=== PATIENT | female | born 1985 | race Asian ===

== ENCOUNTER 2016-10-16 03:19 | Emergency (ER) | payer BC ==
[~2016-10-16] VITALS: Ht 157.5 cm; Wt 72.6 kg
[2016-10-16 03:32] VITALS: BP 139/101; PULSE 91; RESP 16; TEMP 97.8; O2SAT 96
--- NOTE | 2016-10-16 03:32 | NUR ---
Placed in room 8 . 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 To gown for exam. Side rails up.
--- NOTE | 2016-10-16 03:38 | NUR ---
Pt presents to ED with c/o R flank pain radiated to RLQ and suprapubic , 05/30, started an hour ago. pt stated that she was seen at ED and was treated for UTI 1 month ago,then gotten US from PCP revealing kidney stone. Pt stated she did not pass any stone. A&Ox4, denies chestpain or SOB, denies N/V/D. Skin intact, Denies hematuria. will continue to monitor
--- NOTE | 2016-10-16 03:49 | NUR ---
at bedside examining pt
[2016-10-16 03:51] LABS: BILIRUBIN,URINE NEGATIVE (NEGATIVE); BLOOD, URINE 3+ (NEGATIVE); CLARITY/URINE SL CLOUDY (CLEAR); COLOR,URINE YELLOW (YELLOW); GLUCOSE,URINE NEGATIVE (NEGATIVE); KETONES,URINE NEGATIVE (NEGATIVE); LEUKOCYTE ESTERASE ,URINE 2+ (NEGATIVE); NITRITE, URINE NEGATIVE (NEGATIVE); PROTEIN URINE 2+ (NEGATIVE); UROBILINOGEN,URINE 0.2 (0.2-1.0)
[2016-10-16] MEDS ORDERED: NACL 0.9% 1,000 ML IV ONE (03:51)
[2016-10-16] MEDS ORDERED: KETOROLAC TROMETHAMINE 30 MG VIAL IVP ONE ×2 (04:00→05:00)
[2016-10-16] MEDS ORDERED: LORazepam 2 MG/ML VIAL (FOR ER USE) IVP ONE (04:00)
[2016-10-16 04:04] LABS: BACTERIA,URINE MODERATE /HPF (None Seen); RBC,URINE 20-50 /HPF (0-3); WBC,URINE 50-80 /HPF (0-3)
[2016-10-16 04:19] LABS: BASOPHILS % (AUTO) 0.3 % (0.0-2.0); EOSINOPHILS # (AUTO) 0.3 K/uL (0.0-0.4); HEMATOCRIT 39.6 % (36-48); HEMOGLOBIN 13.1 g/dL (12.0-16.0); LYMPHOCYTES # (AUTO) 1.6 K/uL (1.0-5.5); LYMPHOCYTES % (AUTO) 20.1 % (20.5-51.5); MEAN CORPUSCULAR HEMOGLOBIN 32 pg (27-31); MEAN CORPUSCULAR HGB CONC 33 % (32-36); MEAN CORPUSCULAR VOLUME 95 fL (79.0-98.0); MONOCYTES # (AUTO) 0.6 K/uL (0.0-1.0); MONOCYTES % (AUTO) 7.9 % (1.7-9.3); NEUTROPHILS # (AUTO) 5.7 K/uL (1.8-7.7); NEUTROPHILS % (AUTO) 67.7 % (40.0-70.0); PLATELET COUNT (AUTO) 259 K/uL (130-430); RED BLOOD CELL COUNT(AUTO) 4.15 MIL/uL (4.2-6.2); RED CELL DISTRIBUTION WIDTH 12.9 % (9.0-15.0); WHITE BLOOD COUNT (AUTO) 8.2 K/uL (4.8-10.8)
[2016-10-16 04:24] LABS: CALCIUM 8.7 mg/dL (8.4-11.0); CREATININE 0.84 mg/dL (0.55-1.30); POTASSIUM 4.1 mmol/L (3.5-5.1)
[2016-10-16 04:29] LABS: ALBUMIN 3.6 g/dL (3.4-4.8); TOTAL BILIRUBIN 0.2 mg/dL (0.0-1.0); TOTAL PROTEIN, SERUM 7.3 g/dL (6.4-8.3)
--- NOTE | 2016-10-16 04:30 | NUR ---
pt stated pain is tolerable, VSS. Will continue to monitor
[2016-10-16] MEDS ORDERED: PHENAZOPYRIDINE HCL 100 MG TABLET PO ONE (05:00)
[2016-10-16] MEDS ORDERED: CIPROFLOXACIN HCL 500 MG TABLET PO ONE (05:00)
--- NOTE | 2016-10-16 05:40 | NUR ---
Patient given written and verbal discharge instructions and verbalizes understanding. ER MD Leon discussed with patient the results and treatment provided. Patient in stable condition. ID arm band removed. IV catheter removed intact and dressing applied, no active bleeding. Rx of cipro, pyridium, andmotrin given. Patient educated on pain management and to follow up with PMD. Pain Scale 0/10 Opportunity for questions provided and answered.
[2016-10-16 05:41] VITALS: BP 120/76; PULSE 84; RESP 16; TEMP 97.8; O2SAT 96
== END 2016-10-16 05:40 | disposition home or self-care (01) ==
LOC: SED 03:19
DX: N20.0 Calculus of kidney (principal)
CPT/HCPCS: 36415; 74176; 80053; 81000; 81025; 85025; 87086; 87186; 96361; 96374; 96375; 96376; 99285; J1885; J2060; J7030

== ENCOUNTER 2017-04-30 19:10 | Emergency (ER) | payer BC ==
--- NOTE | 2017-04-30 20:47 | NUR ---
Patient left without being seen/triaged. No further treatment provided for the pt. ER MD made aware
--- NOTE | 2017-04-30 20:47 | NUR ---
CALLED TO TRIAGE, NO ANSWER
== END 2017-04-30 20:47 | disposition left against medical advice (07) ==
LOC: SED 19:10
DX: R39.89 Other symptoms and signs involving the genitourinary system (principal)

== ENCOUNTER 2017-07-13 02:34 | Inpatient (IN) | payer BC ==
[~2017-07-13] VITALS: Ht 152.4 cm; Wt 76.3 kg
[2017-07-13] VITALS (15 sets, daily range): BP systolic 50–138
[2017-07-13] MEDS ORDERED: NACL 0.9% 1,000 ML IV ONE ×2 (03:05→20:30)
[2017-07-13] MEDS ORDERED: cefTRIAXone 500 MG in D5W 50 ML IV ONE (03:15)
[2017-07-13] MEDS ORDERED: HYDROmorphone 1 MG INJ. 1 MG/ML AMPUL IVP ONE ×2 (03:15→04:45)
[2017-07-13] MEDS ORDERED: DIPHENHYDRAMINE INJ 50 MG/ML VIAL IVP ONE (03:15)
[2017-07-13] MEDS ORDERED: cefTRIAXone 250 MG VIAL ONE (03:18)
[2017-07-13 03:28] LABS: BILIRUBIN,URINE NEGATIVE (NEGATIVE); BLOOD, URINE 2+ (NEGATIVE); CLARITY/URINE CLEAR (CLEAR); COLOR,URINE YELLOW (YELLOW); GLUCOSE,URINE NEGATIVE (NEGATIVE); KETONES,URINE TRACE (NEGATIVE); LEUKOCYTE ESTERASE ,URINE 2+ (NEGATIVE); NITRITE, URINE POSITIVE (NEGATIVE); PROTEIN URINE TRACE (NEGATIVE)
[2017-07-13] MEDS ORDERED: cefTRIAXone 1 GM in D5W 50 ML IV ONE (03:30)
[2017-07-13 03:32] LABS: BACTERIA,URINE MODERATE /HPF (None Seen); MUCUS,URINE 1+ /LPF (None Seen)
[2017-07-13] MEDS ORDERED: cefTRIAXone 1 GM VIAL ONE (03:34)
[2017-07-13 03:39] LABS: BASOPHILS # (AUTO) 0.5 K/uL (0.0-0.2); BASOPHILS % (AUTO) 3.2 % (0.0-2.0); EOSINOPHILS # (AUTO) 0.1 K/uL (0.0-0.4); EOSINOPHILS % (AUTO) 0.7 % (0.0-4.0); HEMATOCRIT 39.6 % (36-48); HEMOGLOBIN 13.3 g/dL (12.0-16.0); LYMPHOCYTES # (AUTO) 1.1 K/uL (1.0-5.5); LYMPHOCYTES % (AUTO) 6.9 % (20.5-51.5); MEAN CORPUSCULAR HEMOGLOBIN 31 pg (27-31); MEAN CORPUSCULAR HGB CONC 34 % (32-36); MEAN CORPUSCULAR VOLUME 92 fL (79.0-98.0); MONOCYTES # (AUTO) 0.5 K/uL (0.0-1.0); MONOCYTES % (AUTO) 3.6 % (1.7-9.3); NEUTROPHILS % (AUTO) 85.6 % (40.0-70.0); PLATELET COUNT (AUTO) 289 K/uL (130-430); RED BLOOD CELL COUNT(AUTO) 4.29 MIL/uL (4.2-6.2); RED CELL DISTRIBUTION WIDTH 12.6 % (9.0-15.0); WHITE BLOOD COUNT (AUTO) 15.2 K/uL (4.8-10.8)
[2017-07-13 03:47] LABS: CALCIUM 8.6 mg/dL (8.4-11.0); CREATININE 1.12 mg/dL (0.55-1.30); POTASSIUM 3.6 mmol/L (3.5-5.1)
[2017-07-13] MEDS ORDERED: ACETAMINOPHEN 325 MG TABLET PO PRN (04:45)
[2017-07-13] MEDS ORDERED: ONDANSETRON HCL 4 MG/2 ML VIAL IVP ONE (04:45)
[2017-07-13] MEDS: HYDROmorphone 1 MG INJ. 1 MG/ML AMPUL IVP PRN ×2 (07:41→11:45)
[2017-07-13] MEDS: D5NS 1,000 ML IV SCH ×2 (07:41→20:26)
[2017-07-13] MEDS ORDERED: HYDROmorphone 1 MG INJ. 1 MG/ML AMPUL IVP PRN (13:15)
[2017-07-13] MEDS ORDERED: LEVOFLOXACIN 500 MG/D5W 100 ML IV ONE (13:15)
[2017-07-13] MEDS ORDERED: NS 500 ML IV ONE (13:15)
[2017-07-13] MEDS: ACETAMINOPHEN 325 MG TABLET PO PRN (13:28)
[2017-07-13] MEDS: HYDROmorphone 2 MG/ML VIAL IVP PRN (13:29)
[2017-07-13] MEDS: IBUPROFEN 600 MG TABLET PO PRN (15:22)
[2017-07-13 23:45] LABS: BASOPHILS # (AUTO) 0.1 K/uL (0.0-0.2); BASOPHILS % (AUTO) 0.5 % (0.0-2.0); HEMATOCRIT 32.4 % (36-48); HEMOGLOBIN 10.9 g/dL (12.0-16.0); LYMPHOCYTES # (AUTO) 1.1 K/uL (1.0-5.5); LYMPHOCYTES % (AUTO) 3.9 % (20.5-51.5); MEAN CORPUSCULAR HEMOGLOBIN 31 pg (27-31); MEAN CORPUSCULAR HGB CONC 34 % (32-36); MEAN CORPUSCULAR VOLUME 93 fL (79.0-98.0); MONOCYTES # (AUTO) 0.8 K/uL (0.0-1.0); MONOCYTES % (AUTO) 2.9 % (1.7-9.3); NEUTROPHILS # (AUTO) 26.2 K/uL (1.8-7.7); NEUTROPHILS % (AUTO) 92.7 % (40.0-70.0); PLATELET COUNT (AUTO) 173 K/uL (130-430); RED CELL DISTRIBUTION WIDTH 12.7 % (9.0-15.0); WHITE BLOOD COUNT (AUTO) 28.2 K/uL (4.8-10.8)
[2017-07-13 23:54] LABS: CALCIUM 7.3 mg/dL (8.4-11.0); CREATININE 2.03 mg/dL (0.55-1.30); POTASSIUM 3.4 mmol/L (3.5-5.1)
[2017-07-13 23:59] LABS: ALBUMIN 2.3 g/dL (3.4-4.8); TOTAL BILIRUBIN 0.4 mg/dL (0.0-1.0)
[2017-07-14] VITALS (26 sets, daily range): BP systolic 83–120
[2017-07-14] MEDS: NOREPINEPHRINE BITARTRATE 4 MG in D5W 246 ML IV PRN ×2 (00:15→11:47)
[2017-07-14] MEDS ORDERED: LEVOFLOXACIN 500 MG/D5W 100 ML IV SCH (01:45)
[2017-07-14] MEDS ORDERED: POTASSIUM CHLORIDE 20 MEQ TAB.PRT.SR PO ONE (01:45)
[2017-07-14] MEDS ORDERED: POTASSIUM CHLORIDE 20 MEQ TAB.PRT.SR ONE (01:52)
[2017-07-14] MEDS: ACETAMINOPHEN 325 MG TABLET PO PRN (01:58)
[2017-07-14] MEDS: LEVOFLOXACIN 500 MG/D5W 100 ML IV ONE ×2 (02:09→02:20)
[2017-07-14] MEDS ORDERED: cefTRIAXone 1 GM in D5W 50 ML IV SCH (09:00)
[2017-07-14] MEDS: D5NS 1,000 ML IV SCH (09:10)
[2017-07-14] MEDS ORDERED: NACL 0.9% 1,000 ML IV ONE (11:00)
[2017-07-14] MEDS ORDERED: PIPERACILLIN/TAZO 4.5GM/DEX-IS 100 ML IV SCH (11:00)
[2017-07-14] MEDS ORDERED: GENTAMICIN 80 mg/100 mL NS 100 ML IV ONE (12:15)
[2017-07-14] MEDS: NACL 0.9% 1,000 ML IV SCH ×2 (12:39→20:08)
[2017-07-14] MEDS: PIPERACILLIN/TAZOBACTAM 4.5 GM/ D5W 100 ML IV SCH ×4 (14:31→21:27)
[2017-07-14] MEDS ORDERED: IBUPROFEN 600 MG TABLET ONE (19:49)
[2017-07-14] MEDS: IBUPROFEN 600 MG TABLET PO PRN (19:53)
[2017-07-14] MEDS: HYDROmorphone 2 MG/ML VIAL IVP PRN (21:11)
[2017-07-15] VITALS (21 sets, daily range): BP systolic 90–124
[2017-07-15] MEDS: NACL 0.9% 1,000 ML IV SCH (03:45)
[2017-07-15] MEDS: PIPERACILLIN/TAZOBACTAM 4.5 GM/ D5W 100 ML IV SCH ×6 (05:25→21:10)
[2017-07-15 06:27] LABS: BASOPHILS # (AUTO) 0.1 K/uL (0.0-0.2); BASOPHILS % (AUTO) 0.2 % (0.0-2.0); EOSINOPHILS # (AUTO) 0.2 K/uL (0.0-0.4); EOSINOPHILS % (AUTO) 0.7 % (0.0-4.0); HEMATOCRIT 29.7 % (36-48); HEMOGLOBIN 9.9 g/dL (12.0-16.0); LYMPHOCYTES # (AUTO) 1.8 K/uL (1.0-5.5); LYMPHOCYTES % (AUTO) 6.4 % (20.5-51.5); MEAN CORPUSCULAR HEMOGLOBIN 31 pg (27-31); MEAN CORPUSCULAR HGB CONC 33 % (32-36); MEAN CORPUSCULAR VOLUME 93 fL (79.0-98.0); MONOCYTES # (AUTO) 1.2 K/uL (0.0-1.0); MONOCYTES % (AUTO) 4.3 % (1.7-9.3); NEUTROPHILS # (AUTO) 25.2 K/uL (1.8-7.7); PLATELET COUNT (AUTO) 157 K/uL (130-430); RED BLOOD CELL COUNT(AUTO) 3.18 MIL/uL (4.2-6.2); RED CELL DISTRIBUTION WIDTH 12.9 % (9.0-15.0); WHITE BLOOD COUNT (AUTO) 28.5 K/uL (4.8-10.8)
[2017-07-15 06:42] LABS: ALBUMIN 2.1 g/dL (3.4-4.8); CALCIUM 7.1 mg/dL (8.4-11.0); CREATININE 0.92 mg/dL (0.55-1.30); POTASSIUM 4.2 mmol/L (3.5-5.1); TOTAL BILIRUBIN 0.2 mg/dL (0.0-1.0)
[2017-07-15] MEDS: HYDROmorphone 2 MG/ML VIAL IVP PRN ×3 (07:42→19:41)
[2017-07-15 07:50] LABS: NEUTROPHILS % (AUTO) 88.4 % (40.0-70.0)
[2017-07-15] MEDS: ONDANSETRON HCL 4 MG/2 ML VIAL IVP PRN ×2 (10:32→19:40)
[2017-07-16] MEDS: HYDROmorphone 2 MG/ML VIAL IVP PRN (00:24)
[2017-07-16 00:38] VITALS: BP_SYST 121
== END 2017-07-16 01:40 | disposition short-term general hospital (02) | DRG 871 ==
LOC: SED 02:34 → SMU 04:40 → SIC 23:39 → SMU 07-15 18:30
PROVIDERS: ADMIT Internal Medicine Hospice and Palliative Medicine; ATTEND Internal Medicine Hospice and Palliative Medicine
DX: A41.9 Sepsis, unspecified organism (principal); R65.21 Severe sepsis with septic shock; N17.0 Acute kidney failure with tubular necrosis; N10 Acute pyelonephritis; I10 Essential (primary) hypertension; N32.3 Diverticulum of bladder; N20.0 Calculus of kidney; N21.0 Calculus in bladder; Z79.899 Other long term (current) drug therapy
CPT/HCPCS: 36415; 36600; 76770; 80048; 80053; 81000-TC; 82803-TC; 82962; 83605; 85025; 87040-TC; 87081; 87086; 87186-TC; 96361; 96365; 96375; 96376; 99285; J0696; J1170; J1200; J1580; J1956; J2405; J2543; J7030; J7040; J7042; J7060

== ENCOUNTER 2024-03-04 20:57 | Emergency (ER) | payer BC, OTHER ==
[~2024-03-04] VITALS: Ht 152.4 cm; Wt 68.0 kg
[2024-03-04 21:39] VITALS: BP_SYST 126; PULSE 75; RESP 17; TEMP 97.5; O2SAT 97
[2024-03-04 21:46] LABS: BASOPHILS # (AUTO) 0.2 K/uL (0.0-0.2); BASOPHILS % (AUTO) 2.1 % (0.0-2.0); EOSINOPHILS # (AUTO) 0.2 K/uL (0.0-0.4); EOSINOPHILS % (AUTO) 1.3 % (0.0-4.0); HEMATOCRIT 41.9 % (36-48); LYMPHOCYTES # (AUTO) 1.7 K/uL (1.0-5.5); LYMPHOCYTES % (AUTO) 14.5 % (20.5-51.5); MEAN CORPUSCULAR HEMOGLOBIN 32 pg (27-31); MEAN CORPUSCULAR HGB CONC 33 % (32-36); MEAN CORPUSCULAR VOLUME 95 fL (79.0-98.0); MONOCYTES # (AUTO) 0.6 K/uL (0.0-1.0); MONOCYTES % (AUTO) 5.3 % (1.7-9.3); NEUTROPHILS # (AUTO) 8.9 K/uL (1.8-7.7); NEUTROPHILS % (AUTO) 76.8 % (40.0-70.0); PLATELET COUNT (AUTO) 268 K/uL (130-430); RED BLOOD CELL COUNT(AUTO) 4.39 MIL/uL (4.2-6.2); RED CELL DISTRIBUTION WIDTH 13.1 % (9.0-15.0); WHITE BLOOD COUNT (AUTO) 11.5 K/uL (4.8-10.8)
[2024-03-04 21:53] LABS: ALBUMIN 3.4 g/dL (3.4-4.8); CALCIUM 8.9 mg/dL (8.4-11.0); CREATININE 0.77 mg/dL (0.55-1.30); POTASSIUM 3.9 mmol/L (3.5-5.1); TOTAL BILIRUBIN 0.3 mg/dL (0.0-1.0); TOTAL PROTEIN, SERUM 7.1 g/dL (6.4-8.3)
[2024-03-04 22:13] LABS: BILIRUBIN,DIRECT 0.1 mg/dL (0.0-0.3)
[2024-03-04 22:25] LABS: BILIRUBIN,URINE NEGATIVE (NEGATIVE); BLOOD, URINE NEGATIVE (NEGATIVE); CLARITY/URINE CLEAR (CLEAR); COLOR,URINE YELLOW (YELLOW); GLUCOSE,URINE NEGATIVE (NEGATIVE); KETONES,URINE NEGATIVE (NEGATIVE); LEUKOCYTE ESTERASE ,URINE NEGATIVE (NEGATIVE); NITRITE, URINE NEGATIVE (NEGATIVE); PROTEIN URINE NEGATIVE (NEGATIVE); UROBILINOGEN,URINE 0.2 (0.2-1.0)
[2024-03-04 23:00] VITALS: BP_SYST 126; PULSE 75; RESP 17; TEMP 97.5; O2SAT 97
== END 2024-03-04 23:00 | disposition home or self-care (01) ==
LOC: SED 20:57
DX: O20.0 Threatened abortion (principal); Z3A.01 Less than 8 weeks gestation of pregnancy
CPT/HCPCS: 36415; 76801; 76817; 80048; 80076; 81001; 81003; 84702; 85025; 86886; 86900; 86901; 99284